=== PATIENT | female | born 1970 | race Caucasian/White ===

== ENCOUNTER 2016-10-29 18:35 | Emergency (ER) | payer MEDICAID ==
[~2016-10-29] VITALS: Ht 162.6 cm; Wt 122.5 kg
[2016-10-29] MEDS ORDERED: predniSONE 20 MG TABLET PO ONE (20:00)
[2016-10-29] MEDS ORDERED: ALBUTEROL SULFATE 2.5 MG/3 ML NEBU NEB ONE (20:00)
[2016-10-29] MEDS ORDERED: IPRATROPIUM BROMIDE 0.5 MG/2.5 ML NEBU NEB ONE (20:00)
[2016-10-29] MEDS ORDERED: predniSONE 10 MG TABLET ONE (20:08)
[2016-10-29] MEDS ORDERED: predniSONE 50 MG TABLET ONE (20:08)
[2016-10-29] MEDS ORDERED: ALBUTEROL SULFATE 2.5 MG/3 ML NEBU ONE (20:18)
[2016-10-29] MEDS ORDERED: IPRATROPIUM BROMIDE 0.5 MG/2.5 ML NEBU ONE (20:18)
[2016-10-29 20:55] VITALS: BP 110/60
--- NOTE | 2016-10-29 20:55 | NUR ---
Patient discharged to home in stable conditon. Written and verbal after care instructions given. Patient verbalizes understanding of instructions.
== END 2016-10-29 20:56 | disposition home or self-care (01) ==
LOC: ER 18:38
DX: J45.909 Unspecified asthma, uncomplicated (principal); F17.200 Nicotine dependence, unspecified, uncomplicated; K21.9 Gastro-esophageal reflux disease without esophagitis; I10 Essential (primary) hypertension
CPT/HCPCS: 71010; 94640; 99283; A4663; J3590; J7512 ×2

== ENCOUNTER 2017-02-27 23:35 | Emergency (ER) | payer MEDICAID ==
[~2017-02-27] VITALS: Ht 162.6 cm; Wt 127.0 kg
--- NOTE | 2017-02-28 00:06 | NUR ---
RECEIIVED PT [id number], AMBULATORY, IN NO DISTRESS, C/O RIGHT KNEE PAIN S/P SLIP AND FALL, DENIES HITTING HEAD, DENIES ANY OTHER INJURIES,BED IN LOWEST POSITION, LOCKED, HOB UP, SR UP X2 FOR SAFETY, CB WITHIN REACH, WILL CONTINUE WITH POC
[2017-02-28] MEDS ORDERED: HYDROCODONE/APAP 10-325 MG TABLET PO ONE (00:45)
[2017-02-28] MEDS ORDERED: predniSONE 20 MG TABLET PO ONE (00:45)
--- NOTE | 2017-02-28 00:59 | NUR ---
Patient discharged to home in stable conditon. Written and verbal after care instructions given. Patient verbalizes understanding of instructions.
[2017-02-28] MEDS ORDERED: HYDROCODONE/APAP 10-325 MG TABLET ONE (01:04)
[2017-02-28] MEDS ORDERED: predniSONE 10 MG TABLET ONE (01:04)
[2017-02-28] MEDS ORDERED: predniSONE 50 MG TABLET ONE (01:04)
[2017-02-28] MEDS ORDERED: predniSONE 20 MG TABLET ONE (01:04)
== END 2017-02-28 01:01 | disposition home or self-care (01) ==
LOC: ER 23:36
DX: M25.561 Pain in right knee (principal); K21.9 Gastro-esophageal reflux disease without esophagitis; M19.90 Unspecified osteoarthritis, unspecified site; J45.909 Unspecified asthma, uncomplicated; F17.200 Nicotine dependence, unspecified, uncomplicated; Z88.5 Allergy status to narcotic agent
CPT/HCPCS: A4663; J7512

== ENCOUNTER 2025-03-04 15:04 | Emergency (ER) | payer MEDICAID, MEDICARE, OTHER ==
[~2025-03-04] VITALS: Ht 162.6 cm; Wt 121.1 kg
[2025-03-04 15:13] VITALS: BP 125/71
[2025-03-04] MEDS ORDERED: HYDR-3980 PO (15:21)
[2025-03-04] MEDS ORDERED: OMEP40CA21 PO (15:21)
[2025-03-04] MEDS: IV NORMAL SALINE 1000 ML BAG IV ONE (15:39)
[2025-03-04] MEDS ORDERED: ONDANSETRON 4 MG/2 ML VIAL ONE (15:40)
[2025-03-04] MEDS ORDERED: FENTANYL CITRATE 100 MCG/2 ML AMPUL ONE (15:41)
[2025-03-04] MEDS: ONDANSETRON 4 MG/2 ML VIAL IV ONE (15:47)
[2025-03-04] MEDS: FENTANYL CITRATE 100 MCG/2 ML AMPUL IV ONE (15:48)
[2025-03-04 15:50] LABS: PLATELET COUNT (AUTO) 219 K/uL (179-408); RED BLOOD CELL COUNT(AUTO) 4.95 MIL/uL (3.63-4.92); RED CELL DISTRIBUTION WIDTH 14.7 % (12.3-17.7); WHITE BLOOD COUNT (AUTO) 7.9 K/uL (3.8-11.8)
[2025-03-04 15:50] LABS: *BILIRUBIN,URIN NEGATIVE (NEGATIVE); *BLOOD, URINE NEGATIVE (NEGATIVE); *CLARITY,URINE CLEAR (CLEAR); *COLOR,URINE YELLOW (YELLOW); *KETONES,URINE NEGATIVE (NEGATIVE); *PROTEIN,URINE NEGATIVE (NEGATIVE); *UROBILINOGEN,URINE 1.0 E.U./dl (NORMAL); LEUKOCYTE ESTERASE ,URINE NEGATIVE (NEGATIVE); NITRITE, URINE NEGATIVE (NEGATIVE); UGLUCOSE NEGATIVE (NEGATIVE)
[2025-03-04 15:57] LABS: CREATININE 0.7 mg/dL (0.6-1.3); SODIUM SERUM 136.0 mmol/L (136-145); UREA NITROGEN, BLOOD 12.0 mg/dL (7-18)
[2025-03-04 15:59] LABS: SQUAMOUS EPITHELIAL CELL,UR FEW /HPF (NONE SEEN)
[2025-03-04 16:02] LABS: ASPARTATE AMINOTRANSFERASE 15.0 U/L (15-37); TOTAL PROTEIN, SERUM 7.5 g/dL (6.4-8.2)
[2025-03-04] MEDS ORDERED: FAMO-132 PO (17:28)
[2025-03-04] MEDS ORDERED: ONDA4TAB5 PO (17:28)
[2025-03-04] MEDS ORDERED: POLY17PO4 PO (17:28)
[2025-03-04] MEDS ORDERED: HYDR-3974 PO (17:28)
[2025-03-04] MEDS ORDERED: HYDROCODONE/APAP 5-325MG TABLET ONE (17:37)
[2025-03-04] MEDS: HYDROCODONE/APAP 5-325MG TABLET PO ONE (17:41)
[2025-03-04 18:09] VITALS: BP 127/77; TEMP 98; O2SAT 94
== END 2025-03-04 18:34 | disposition home or self-care (01) ==
LOC: ER 15:04
DX: R10.A1 Flank pain, right side (principal); R11.2 Nausea with vomiting, unspecified; F17.200 Nicotine dependence, unspecified, uncomplicated; G89.29 Other chronic pain; J45.909 Unspecified asthma, uncomplicated; K86.1 Other chronic pancreatitis; M19.90 Unspecified osteoarthritis, unspecified site; Z79.899 Other long term (current) drug therapy; Z88.6 Allergy status to analgesic agent; Z88.7 Allergy status to serum and vaccine; Z90.49 Acquired absence of other specified parts of digestive tract; Z98.891 History of uterine scar from previous surgery
CPT/HCPCS: 99285; 74176; 96374; 76705; 96361; 80076; 80048; 81001; 83690; 85025; 36415; J2405; J3010; J7040; A4606; A4663